=== PATIENT | female | born 1960 | race African-American/Black ===

== ENCOUNTER 2018-05-22 08:56 | Emergency (ER) | payer SELFPAY ==
[~2018-05-22] VITALS: Ht 170.2 cm; Wt 80.0 kg
[2018-05-22] MEDS ORDERED: FLEXERIL PO (10:57)
[2018-05-22] MEDS ORDERED: TORADOL PO (10:57)
[2018-05-22 11:00] VITALS: BP 162/94
== END 2018-05-22 11:24 | disposition home or self-care (01) | DRG 563 ==
LOC: ED 08:56
DX: S39.012A Strain of muscle, fascia and tendon of lower back, initial encounter (principal); V77.6XXA Passenger on bus injured in collision with fixed or stationary object in traffic accident, initial encounter; Y93.I9 Activity, other involving external motion; Y92.410 Unspecified street and highway as the place of occurrence of the external cause; Y99.0 Civilian activity done for income or pay